=== PATIENT | male | born 1990 | race Caucasian/White ===

== ENCOUNTER → 2017-11-30 | Outpatient (CLI) | payer BC ==
--- NOTE | 2017-11-30 09:17 | DIAGNOSTIC IMAGING REPORT ---
(TESTICULAR) SCROTUM-CONT HISTORY: Infertility VARICOCELE, MALE INFERTILITY COMPARISON: None. FINDINGS: Right testis: Uniform in echogenicity. Maximum dimension 5.4 cm. Normal vascular flow Left testis: Maximum dimension 5.2 cm. Normal vascular flow. Right-sided varicocele. IMPRESSION: 1. Normal testes bilaterally. 2. Right varicocele. The above report was generated using voice recognition software. It may contain grammatical, syntax or spelling errors. Electronically signed by: Karthik Juan M.D. 11/30/2017 9:15 AM Dictated Date/Time: 11/30/2017 9:14 AM
[2017-11-30 11:12] LABS: FOLLICLE STIMULAT HORMONE 6.28 IU/L; PROLACTIN 15.52 ng/mL; TESTOSTERONE,TOTAL 600.7 ng/dl
== END | disposition home or self-care (01) ==
LOC: C.LAB 08:08
PROVIDERS: ATTEND Physician Assistant Medical
DX: N46.9 Male infertility, unspecified (principal); I86.1 Scrotal varices